=== PATIENT | male | born 1960 | race Caucasian/White ===

== ENCOUNTER 2017-04-22 06:25 | Day surgery (SDC) | payer BC ==
[2017-04-22] MEDS ORDERED: fentaNYL 100 MCG/2 ML SDV IV ONE (06:26)
[2017-04-22] MEDS ORDERED: Propofol 200 MG/20 ML SDV IV ONE (06:26)
[2017-04-22] MEDS ORDERED: Ondansetron 4 MG/2 ML SDV IV ONE (06:26)
[2017-04-22] MEDS ORDERED: Midazolam 1 MG/ML 2 ML SDV IV ONE (06:26)
[2017-04-22] MEDS ORDERED: Lactated Ringers 1,000 ML IV SCH (06:30)
[2017-04-22] MEDS ORDERED: Midazolam 1 MG/ML 2 ML SDV ONE (07:22)
[2017-04-22] MEDS ORDERED: fentaNYL 100 MCG/2 ML SDV ONE (07:22)
[2017-04-22] MEDS ORDERED: Lidocaine 2% 20 ML MDV ONE (07:23)
[2017-04-22] MEDS ORDERED: Propofol 200 MG/20 ML SDV ONE (07:23)
[2017-04-22] MEDS ORDERED: Ondansetron 4 MG/2 ML SDV ONE (07:23)
[2017-04-22] MEDS ORDERED: ceFAZolin 1 GM in Sodium Chloride 0.9% 50 ML IV ONE (07:30)
--- NOTE | 2017-04-22 07:31 | PCM.PREANE ---
Preanesthetic Assessment - Anesthesia/Transfusion/Family Hx Anesthesia History: Prior Anesthesia Without Reaction Family History of Anesthesia Reaction: No Transfusion History: No Prior Transfusion(s) Intubation History: Unknown - Review of Systems General: No Symptoms, Other (obese) Pulmonary: No Symptoms, Other (smoker smoked this morning) Cardiovascular: No Symptoms Gastrointestinal: No Symptoms Neurological: No Symptoms Other: Reports: None - Physical Assessment NPO Status Date: 04/21/17 NPO Status Time: 23:00 Pulse: 55 O2 Sat by Pulse Oximetry: 97 Respiratory Rate: 18 Vital Signs: Last Vital Signs Temp 97.3 F 04/22/17 06:37 Pulse 55 L 04/22/17 06:37 Resp 18 04/22/17 06:37 BP 173/92 H 04/22/17 06:37 Pulse Ox 97 04/22/17 06:37 Height: 1.85 m Weight: 127.006 kg ASA Class: 2 Airway Class: Mallampati = 3 Dentition: Reports: Normal Dentition Thyro-Mental Finger Breadths: 3 Mouth Opening Finger Breadths: 3 ROM/Head Extension: Full Lungs: Clear to Auscultation, Normal Respiratory Effort Cardiovascular: Irregular Rhythm - Allergies Allergies/Adverse Reactions: Allergies Allergy/AdvReac Type Severity Reaction Status Date / Time No Known Allergies Allergy Verified 04/22/17 06:39 - Blood Blood Available: No Product(s) Available: None - Anesthesia Plan Pre-Op Medication Ordered: None Beta Juanito: Metoprolol Med Last Dose Date: 04/21/17 Med Last Dose Time: 20:00 - Acknowledgements Anesthesia Type Planned: General Anesthesia Pt an Appropriate Candidate for the Planned Anesthesia: Yes Alternatives and Risks of Anesthesia Discussed w Pt/Guardian: Yes Pt/Guardian Understands and Agrees with Anesthesia Plan: Yes Additional Comments: R/B of general anesthesia discussed with patient and consent is signed PreAnesthesia Questionnaire HEENT History: Reports: Impaired Vision Cardiovascular History: Reports: Arrhythmia Respiratory History: Reports: Asthma Gastrointestinal History: Reports: None Genitourinary History: Reports: None Musculoskeletal History: Reports: Back Pain, Chronic Neurological History: Reports: None Psychiatric History: Reports: None Endocrine/Metabolic History: Reports: None Hematologic History: Reports: None Immunologic History: Reports: None Oncologic (Cancer) History: Reports: None Dermatologic History: Reports: Other (See Below) Other Dermatologic History: SWOLLEN LEFT BREAST, DRAINAGE FROM NIPPLE - Infectious Disease History Infectious Disease History: Reports: Chicken Pox - Past Surgical History Head Surgeries/Procedures: Reports: None Cardiovascular Surgical History: Reports: Cardiac Ablation Male Surgical History: Reports: None Endocrine Surgical History: Reports: None Neurological Surgical History: Reports: None Oncologic Surgical History: Reports: None Dermatological Surgical History: Reports: None - SUBSTANCE USE Smoking Status *Q: Current Every Day Smoker Tobacco Use Within Last Twelve Months: Cigarettes Second Hand Smoke Exposure: Yes Recreational Drug Use History: No - HOME MEDS Home Medications: Home Meds Albuterol [IJD: Albuterol HFA] 2 puff PO BID 04/20/17 [History] Amoxicillin/Potassium Clav [Amox Tr-K Clv 875-125 mg Tab] 1 each PO DAILY [History] Metoprolol Succinate [Toprol XL] 50 mg PO BEDTIME 04/20/17 [History] - CURRENT (IN HOUSE) MEDS Current Meds: Current Medications Lactated Ringer's (Ringers, Lactated) 1,000 mls @ 50 mls/hr IV ASD[facility]ED [facility] Last Admin: 04/22/17 06:40 Dose: 50 mls/hr
[2017-04-22] MEDS ORDERED: Sodium Chloride 0.9% 10 ML Syringe FLUSH PRN (08:31)
[2017-04-22] MEDS ORDERED: Acetaminophen/oxyCODONE 325-5 MG Tab PO PRN (08:33)
[2017-04-22] MEDS ORDERED: HYDROmorphone 1 MG/ML Syringe IVPUSH ONE (08:50)
[2017-04-22] MEDS ORDERED: HYDROmorphone 1 MG/ML Syringe ONE (08:55)
--- NOTE | 2017-04-22 09:28 | PCM.POSTAN ---
POST ANESTHESIA ASSESSMENT - MENTAL STATUS Mental Status: Alert, Oriented - VITAL SIGNS Pulse Rate: 56 SaO2: 98 Resp Rate: 18 Blood Pressure: 148/82 Temperature: 98.1 F - RESPIRATORY Respiratory Status: Respiratory Rate WNL, Airway Patent, O2 Saturation Stable - CARDIOVASCULAR CV Status: Pulse Rate WNL, Blood Pressure Stable - GASTROINTESTINAL GI Status: No Symptoms - PAIN Pain Score: 1 - POST OP HYDRATION Hydration Status: Adequate & Stable (Pain controled well with 1 mg of Dilaudid. Pleased with his anesthetic plan of care.)
[2017-04-22 11:12] VITALS: BP 137/80
--- NOTE | 2017-04-22 13:46 | OR ---
DATE: 04/22/2017 PREOPERATIVE DIAGNOSIS: Left breast mass. POSTOPERATIVE DIAGNOSIS: Left breast mass. OPERATIVE PROCEDURE: Left breast subcutaneous mastectomy. ATTENDING SURGEON: Jimeenz Martines MD COMPUTER ANALYST SUPERVISOR SURGEON: Vasyl Echeverria, PGY-III, . ESTIMATED BLOOD LOSS: Minimal. SPECIMEN: Left breast mass. INTRAOPERATIVE FINDINGS: Left breast mass, found and removed. Superficial towards the posterior portion of the nipple was removed. INDICATION FOR PROCEDURE: Alex Mina is a 56-year-old male with a family history of his mother having breast cancer, who presents with a left breast mass. He is ongoing waxing and waning for approximately a year with infection. He has been on amoxicillin which does keep it at bay, however, does not completely get it to go away. We did discuss the possible options of doing mammography and ultrasound versus excisional biopsy, in which, he wished to proceed with excisional biopsy at this time. The risks and benefits of this were discussed with the patient and wished to proceed with surgery. DETAILS OF THE PROCEDURE: The patient was brought to the operating room, placed supine on the operating room table. SCDs were placed. Antibiotics were given. He was intubated and sedated without issues, prepped and draped in the standard sterile fashion. Procedure time-out was performed. All were in agreement. A semicircular lateral left breast incision was made starting approximately in the 12 o'clock position and extending clockwise around to the 6 o'clock position, approximately 1 cm outside of the areola. This was carried down to the subcutaneous tissue. The core of tissue engrossing the mass was removed dissecting around the breast tissue until we found subcutaneous fat tissue in all regions. The mass was then removed. There were some portions of the posterior on the nipple that required further debridement, in which chronic granulation tissue was present. There was a small amount of expression of fluid from the nipple. The granulation tissue was debrided back to good dermal tissue. Hemostasis was reassured at this time. There was a small opening following debridement just to the medial portion of the nipple. A punch biopsy was then used to allow drainage of the area. The 2-0 Vicryl deep dermal stitches were placed to reapproximate the incision. A 4-0 Monocryl was placed. Mastisol and sterile dressing were also placed. The patient was brought out of anesthesia without issue and transferred to PACU in stable condition. Dr. Jimenez Martines was present and directed all portions of this procedure. [facility] /[id number] MTDD
== END 2017-04-22 10:35 | disposition home or self-care (01) ==
LOC: DL.SDS 06:25
PROVIDERS: ATTEND Surgery
DX: N60.32 Fibrosclerosis of left breast (principal); N64.89 Other specified disorders of breast; J45.909 Unspecified asthma, uncomplicated; Z98.890 Other specified postprocedural states; F17.210 Nicotine dependence, cigarettes, uncomplicated; Z79.899 Other long term (current) drug therapy
CPT/HCPCS: 19304; A9270; J0690; J1170; J2250; J2405; J2704; J3010; J7050; J7120

== ENCOUNTER 2017-10-05 08:43 | Emergency (ER) | payer BC ==
--- NOTE | 2017-10-05 08:49 | EDM.PDOC ---
ED HPI GENERAL MEDICAL PROBLEM - General Chief Complaint: Fever Stated Complaint: FLU Time Seen by Provider: 10/05/17 08:49 Source of Information: Reports: Patient, RN, RN Notes Reviewed History Limitations: Reports: No Limitations - History of Present Illness INITIAL COMMENTS - FREE TEXT/NARRATIVE: C/O onset of cough and fever yesterday with gen. body aches. Pt was exposed to a child with confirmed Influenza A this last week. Denies sore throat, rash, N/V /D/C, abd. pain, or difficulty breathing. Onset: Sudden Duration: Constant, Getting Worse Location: Reports: Generalized Quality: Reports: Ache Severity: Severe Improves with: Reports: None Worsens with: Reports: None Context: Reports: Sick Contact Associated Symptoms: Reports: No Other Symptoms Treatments BRICKMASON APPRENTICE: Reports: Breathing Treatments Generalized Pain Score (Numeric/FACES): 7 - Related Data Allergies Allergy/AdvReac Type Severity Reaction Status Date / Time No Known Allergies Allergy Verified 10/05/17 08:53 Home Meds: Home Meds Albuterol [IJD: Albuterol HFA] 2 puff PO BID 04/20/17 [History] Metoprolol Succinate [Toprol XL] 50 mg PO BEDTIME 04/20/17 [History] Past Medical History HEENT History: Reports: Impaired Vision Cardiovascular History: Reports: Arrhythmia Respiratory History: Reports: Asthma Gastrointestinal History: Reports: None Genitourinary History: Reports: None Musculoskeletal History: Reports: Back Pain, Chronic Neurological History: Reports: None Psychiatric History: Reports: None Endocrine/Metabolic History: Reports: None Hematologic History: Reports: None Immunologic History: Reports: None Oncologic (Cancer) History: Reports: None Dermatologic History: Reports: Other (See Below) Other Dermatologic History: SWOLLEN LEFT BREAST, DRAINAGE FROM NIPPLE - Infectious Disease History Infectious Disease History: Reports: Chicken Pox - Past Surgical History Head Surgeries/Procedures: Reports: None Cardiovascular Surgical History: Reports: Cardiac Ablation Male Surgical History: Reports: None Endocrine Surgical History: Reports: None Neurological Surgical History: Reports: None Oncologic Surgical History: Reports: None Dermatological Surgical History: Reports: None Social & Family History - Family History Cardiac: Reports: Other (See Below) Respiratory: Reports: Asthma Other Family History: MOTHER HAD A KIDNEY REMOVED Oncologic: Reports: Breast - Tobacco Use Smoking Status *Q: Current Every Day Smoker Years of Tobacco use: 42 Packs/Tins Daily: 1 Used Tobacco, but Quit: No Second Hand Smoke Exposure: Yes - Caffeine Use Caffeine Use: Reports: Soda - Recreational Drug Use Recreational Drug Use: No Drug Use in Last 12 Months: No - Living Situation & Occupation Living situation: Reports: with Family ED ROS GENERAL - Review of Systems Review Of Systems: ROS reveals no pertinent complaints other than HPI. ED EXAM, GENERAL - Physical Exam Exam: See Below Exam Limited By: No Limitations General Appearance: Alert, WD/WN, No Apparent Distress, Other (ill but non- toxic appearing) Eye Exam: Bilateral Eye: Normal Inspection Ears: Normal External Exam, Normal Canal, Hearing Grossly Normal, Normal TMs Nose: No Blood, Nasal Drainage (clear) Throat/Mouth: Normal Inspection, Normal Lips, Normal Teeth, Normal Gums, Normal Oropharynx, Normal Voice, No Airway Compromise Head: Atraumatic, Normocephalic Neck: Normal Inspection, Supple, Non-Tender, Full Range of Motion, Other (no nuchal rigidity). No: Lymphadenopathy (L), Lymphadenopathy (R) Respiratory/Chest: No Respiratory Distress, Lungs Clear, Normal Breath Sounds, No Accessory Muscle Use, Chest Non-Tender, Other (dry cough) Cardiovascular: Regular Rate, Rhythm, No Edema GI/Abdominal: Normal Bowel Sounds, Soft, Non-Tender, No Distention, No Abnormal Bruit (Male) Exam: Deferred Rectal (Males) Exam: Deferred Back Exam: Normal Inspection. No: CVA Tenderness (L), CVA Tenderness (R) Extremities: Normal Inspection, Non-Tender Neurological: Alert, Oriented, CN II-XII Intact, Normal Cognition, Normal Gait, No Motor/Sensory Deficits Psychiatric: Normal Affect, Normal Mood Skin Exam: Warm, Dry, Intact, Normal Color, No Rash Course - Vital Signs Last Recorded V/S: Last Vital Signs Temp 37.2 C 10/05/17 08:48 Pulse 86 10/05/17 08:48 Resp 20 10/05/17 08:48 BP 134/94 H 10/05/17 08:48 Pulse Ox 97 10/05/17 08:48 - Orders/Labs/Meds Orders: Active Orders 24 hr Category Date Time Status CULTURE STREP A CONFIRMATION [] Stat Lab 10/05/17 09:00 Results STREP SCRN A RAPID W CULT CONF [] Stat Lab 10/05/17 09:00 Results Labs: Influenza A/B and Rapid Strep: Negative Departure - Departure Time of Disposition: 10:02 Disposition: Home, Self-Care 01 Condition: Good Clinical Impression: Acute viral syndrome, Exposure to influenza - Discharge Information Instructions: Influenza, Adult, [id number], Adenovirus Forms: ED Department Discharge Additional Instructions: Rx: Tamiflu 75mg Use Acetaminophen (Tylenol) and/or Ibuprofen (Motrin/Advil) as needed for fevers or pain. Follow directions on bottle for dosing & precautions. Supplement fluid intake with extra water, juice until illness resolves. Follow up in clinic if not improving in 7 to 10 days. Return to ER if any breathing difficulty develops, or for any other medical emergency. - My Orders Last 24 Hours: My Active Orders 10/05/17 09:00 CULTURE STREP A CONFIRMATION [RM] Stat STREP SCRN A RAPID W CULT CONF [] Stat - Assessment/Plan Last 24 Hours: My Active Orders 10/05/17 09:00 CULTURE STREP A CONFIRMATION [RM] Stat STREP SCRN A RAPID W CULT CONF [] Stat
[2017-10-05 08:53] VITALS: BP 134/94
== END 2017-10-05 10:11 | disposition home or self-care (01) ==
LOC: DL.ED 08:43
DX: B34.9 Viral infection, unspecified (principal); F17.210 Nicotine dependence, cigarettes, uncomplicated; Z20.828 Contact with and (suspected) exposure to other viral communicable diseases
CPT/HCPCS: 87081; 87430; 87804; 99283

== ENCOUNTER 2020-05-26 19:46 | Emergency (ER) | payer BC ==
[2020-05-26 20:54] VITALS: BP 167/97; PULSE 65
--- NOTE | 2020-05-26 21:06 | CR ---
PROCEDURE INFORMATION: Exam: XR Left Ankle Exam date and time: 05/26/2020 8:45 PM Age: 59 years old Clinical indication: Pain; Ankle and foot; Left TECHNIQUE: Imaging protocol: XR Left ankle. Views: 3 or more views. COMPARISON: No relevant prior studies available. FINDINGS: Bones/joints: A calcaneal spur is demonstrated at the origin of the plantar fascia. There is a large calcification in the plantar fascia near the plantar spur. The mortise joint space is symmetric. There is no evidence of acute fracture. Soft tissues: No soft tissue swelling is identified. IMPRESSION: No acute abnormality.
--- NOTE | 2020-05-26 21:09 | CR ---
PROCEDURE INFORMATION: Exam: XR Left Foot Complete Exam date and time: 05/26/2020 8:54 PM Age: 59 years old Clinical indication: Pain; Ankle and foot; Left TECHNIQUE: Imaging protocol: XR Left foot. Views: 3 or more views. COMPARISON: CR Ankle Min 3V Lt 05/26/2020 8:45 PM FINDINGS: Bones/joints: There is a noninflamed plantar enthesophyte. There is a large calcification in the plantar fascia near the calcaneus. Multiple hammertoe deformities are present. There is no evidence of acute fracture. Soft tissues: Is there is a high plantar arch. No soft tissue swelling is identified. IMPRESSION: 1. High plantar arch. 2. No acute abnormality.
--- NOTE | 2020-05-26 21:18 | EDM.PDOC ---
ED HPI GENERAL MEDICAL PROBLEM - General Chief Complaint: Lower Extremity Injury/Pain Stated Complaint: LEFT FOOT SEVERE PAIN Time Seen by Provider: 05/26/20 21:14 Source of Information: Reports: Patient History Limitations: Reports: No Limitations - History of Present Illness INITIAL COMMENTS - FREE TEXT/NARRATIVE: This 59 yo male patient reports to the ED with left lateral foot and ankle pain for the past 2 days. The patient reports he stepped on a log and rolled his ankle/foot and has been experiencing increased pain since the time of the incident. Duration: Day(s): (2), Constant, Getting Worse Location: Reports: Lower Extremity, Left Quality: Reports: Ache, Dull Severity: Moderate Improves with: Reports: Rest Worsens with: Reports: Movement Context: Reports: Activity Associated Symptoms: Reports: No Other Symptoms Left Upper Anterior Feet Pain Score (Numeric/FACES): 8 - Related Data Allergies Allergy/AdvReac Type Severity Reaction Status Date / Time No Known Allergies Allergy Verified 05/26/20 20:55 Home Meds: Home Meds Fluticasone/Vilanterol [Breo Ellipta 100-25 MCG Inhalation Kit] 1 inh INH DAILY 05/26/20 [History] lisinopriL [Prinivil] 40 mg pe PO DAILY 05/26/20 [History] Past Medical History HEENT History: Reports: Impaired Vision Cardiovascular History: Reports: Arrhythmia, Hypertension Respiratory History: Reports: Asthma Gastrointestinal History: Reports: None Genitourinary History: Reports: None Musculoskeletal History: Reports: Back Pain, Chronic Neurological History: Reports: None Psychiatric History: Reports: None Endocrine/Metabolic History: Reports: None Hematologic History: Reports: None Immunologic History: Reports: None Oncologic (Cancer) History: Reports: None Dermatologic History: Reports: Other (See Below) Other Dermatologic History: SWOLLEN LEFT BREAST, DRAINAGE FROM NIPPLE - Infectious Disease History Infectious Disease History: Reports: Chicken Pox - Past Surgical History Head Surgeries/Procedures: Reports: None Cardiovascular Surgical History: Reports: Cardiac Ablation Male Surgical History: Reports: None Endocrine Surgical History: Reports: None Neurological Surgical History: Reports: None Oncologic Surgical History: Reports: None Dermatological Surgical History: Reports: None Social & Family History - Family History Cardiac: Reports: Other (See Below) Respiratory: Reports: Asthma Other Family History: MOTHER HAD A KIDNEY REMOVED Oncologic: Reports: Breast - Caffeine Use Caffeine Use: Reports: Soda - Living Situation & Occupation Living situation: Reports: with Family Review of Systems - Review of Systems Review Of Systems: Comprehensive ROS is negative, except as noted in HPI. ED EXAM, GENERAL - Physical Exam Exam: See Below Exam Limited By: No Limitations General Appearance: Alert, WD/WN, Moderate Distress Eye Exam: Bilateral Eye: EOMI, Normal Inspection, PERRL Ears: Normal External Exam, Normal Canal, Hearing Grossly Normal, Normal TMs Nose: Normal Inspection, Normal Mucosa, No Blood Throat/Mouth: Normal Inspection, Normal Lips, Normal Teeth, Normal Gums, Normal Oropharynx, Normal Voice, No Airway Compromise Head: Atraumatic, Normocephalic Neck: Normal Inspection, Supple, Non-Tender, Full Range of Motion Respiratory/Chest: No Respiratory Distress, Lungs Clear, Normal Breath Sounds, No Accessory Muscle Use, Chest Non-Tender Cardiovascular: Normal Peripheral Pulses, Regular Rate, Rhythm, No Edema, No Gallop, No JVD, No Murmur, No Rub (Male) Exam: Deferred Rectal (Males) Exam: Deferred Back Exam: Normal Inspection, Full Range of Motion, NT Extremities: Leg Pain (left lower extremity pain) Neurological: Alert, Oriented, CN II-XII Intact, Normal Cognition, Normal Gait, Normal Reflexes, No Motor/Sensory Deficits Psychiatric: Normal Affect, Normal Mood Skin Exam: Warm, Dry, Intact, Normal Color, No Rash Lymphatic: No Adenopathy Course - Vital Signs Last Recorded V/S: Last Vital Signs Temp 36.9 C 05/26/20 20:47 Pulse 65 05/26/20 20:47 Resp 18 05/26/20 20:47 BP 167/97 H 05/26/20 20:47 Pulse Ox 99 05/26/20 20:47 Departure - Departure Time of Disposition: 21:30 Disposition: Home, Self-Care 01 Condition: Fair Clinical Impression: Left ankle sprain Qualifiers: Encounter type: initial encounter Involved ligament of ankle: unspecified ligament Qualified Code(s): S93.402A - Sprain of unspecified ligament of left ankle, initial encounter - Discharge Information *PRESCRIPTION DRUG MONITORING PROGRAM REVIEWED*: Not Applicable *COPY OF PRESCRIPTION DRUG MONITORING REPORT IN PATIENT RAMA: Not Applicable Instructions: How to Use a Stirrup Ankle Brace, [id number], Ankle Sprain, [id number] Forms: ED Department Discharge Care Plan Goals: The patient was advised of the examination and x-ray results during the visit. The patient was placed in a left ankle support (air splint) during the visit. The patient was encouraged to rest, ice and elevate the extremity. If the patient has any additional symptoms or concerns, the patient should either return to the emergency department or visit his primary care facility. Sepsis Event Note (ED) - Evaluation Sepsis Screening Result: No Definite Risk - Focused Exam Vital Signs: Vital Signs Temp Pulse Resp BP Pulse Ox 05/26/20 20:47 36.9 C 65 18 167/97 H 99
== END 2020-05-26 21:35 | disposition home or self-care (01) ==
LOC: DL.ED 19:46
DX: S93.402A Sprain of unspecified ligament of left ankle, initial encounter (principal); J45.909 Unspecified asthma, uncomplicated; I10 Essential (primary) hypertension; Z79.899 Other long term (current) drug therapy; X50.1XXA Overexertion from prolonged static or awkward postures, initial encounter
CPT/HCPCS: 73610-LT; 73630-LT; 99282; 99283

== ENCOUNTER 2020-05-31 11:38 | Emergency (ER) | payer BC ==
--- NOTE | 2020-05-31 13:00 | EDM.PDOC ---
<Mitesh Oquendo - Last Filed: 05/31/20 13:02> ED HPI GENERAL MEDICAL PROBLEM - General Chief Complaint: Lower Extremity Injury/Pain Stated Complaint: Left foot injury Time Seen by Provider: 05/31/20 12:00 - Related Data Allergies Allergy/AdvReac Type Severity Reaction Status Date / Time No Known Allergies Allergy Verified 05/31/20 11:54 Home Meds: Home Meds Fluticasone/Vilanterol [Breo Ellipta 100-25 MCG Inhalation Kit] 1 inh INH DAILY 05/26/20 [History] lisinopriL [Prinivil] 40 mg PO DAILY 05/26/20 [History] Course - Radiology Interpretation Free Text/Narrative:: [facility] Final Radiology Report Call: [phone] assistance Online chat: [email or web address] Name: GAYE SORIA Age: 59Years M Date: 05/31/2020 SSN: -- : [id number] Study: CT FOOT WO CONT LT Requesting Physician: Loc Ellison Images: [id number] Addl Studies: Provided Clinical History: injury, tenderness base of 5th metatarsal Contrast: Without Contrast Medium: Contrast Amount: Contrast Method: CONFIDENTIALITY STATEMENT This report is intended only for use by the referring physician, and only in accordance with law. If you received this in error, call [phone]. Page 1 of 1 PROCEDURE INFORMATION: Exam: CT Left Lower Extremity Without Contrast, Foot Exam date and time: 05/31/2020 12:39 PM Age: 59 years old Clinical indication: Pain; Foot; Left; Additional info: Injury, tenderness base of 5th metacarpal TECHNIQUE: Imaging protocol: CT of the Left lower extremity without contrast was performed. Exam focused on the foot. Radiation optimization: All CT scans at this facility use at least one of these dose optimization techniques: automated exposure control; mA and/or kV adjustment per patient size (includes targeted exams where dose is matched to clinical indication); or iterative reconstruction. COMPARISON: CR Foot Comp Min 3V Lt 05/26/2020 8:54 PM FINDINGS: Bones/joints: Mild to moderate grade degenerative changes are present within the intertarsal articulations, Lisfranc joint and metatarsophalangeal joints. No fractures are identified. A moderate size plantar heel spur is present. Soft tissues: Soft tissue swelling is noted at the base of the 5th metatarsal. IMPRESSION: 1. Soft tissue swelling at base of the 5th metatarsal head. This could represent soft tissue injury. No fractures are identified. Thank you for allowing us to participate in the care of your patient. Dictated and Authenticated by: Compa Forrest MD 05/31/2020 1:01 PM Central Time ([place] & [place]) - Re-Assessments/Exams Free Text/Narrative Re-Assessment/Exam: 05/31/20 13:03 I saw and evaluated the patient. Discussed with resident and agree with residents findings and plan as documented in the residents note. Departure - Departure Disposition: Home, Self-Care 01 Clinical Impression: Soft tissue injury of foot - Discharge Information Instructions: Foot Sprain Forms: ED Department Discharge Additional Instructions: Follow up in outpatient clinic to discuss MRI and to address elevated blood pressure. Continue to rest and elevate the affected foot. Stay off the foot as much as possible. Use the walking boot when ambulating. Use hot/cold compresses and over the counter pain medication as needed. <Loc Ellison - Last Filed: 05/31/20 13:34> ED HPI GENERAL MEDICAL PROBLEM - General Source of Information: Reports: Patient History Limitations: Reports: No Limitations - History of Present Illness INITIAL COMMENTS - FREE TEXT/NARRATIVE: 59 y/o male who presents to the ED c/o worsening pain in the left foot after an injury that occurred 05/25/2020. He was walking outdoors when he stepped on a log with his forefoot. There was forceful dorsiflexion of the foot. Injury was initially painful but bearable. He presented here to the ED on Sunday 05/27 where plain film XR of the foot and ankle were performed which showed no fracture. Ankle sprain was suspected. He was provided a splint and advised on r est, elevation, ice/heat, and anti-inflammatory use. He has been following these instructions. Today he notes that the pain has become significantly worse. Pain is located across the top and bottom of the forefoot. Pain is worsened with weight bearing. There is tenderness when pushing on the outside of the foot. He denies any other symptoms. Patient notes history of multiple ankle sprains of the left ankle, states he has some chronic loss of range of motion in that ankle. He denies any pain within the ankle joint itself, pain is limited to the forefoot. Left Foot Pain Score (Numeric/FACES): 8 Past Medical History HEENT History: Reports: Impaired Vision Cardiovascular History: Reports: Arrhythmia, Hypertension Respiratory History: Reports: Asthma Gastrointestinal History: Reports: None Genitourinary History: Reports: None Musculoskeletal History: Reports: Back Pain, Chronic Neurological History: Reports: None Psychiatric History: Reports: None Endocrine/Metabolic History: Reports: None Hematologic History: Reports: None Immunologic History: Reports: None Oncologic (Cancer) History: Reports: None Dermatologic History: Reports: Other (See Below) Other Dermatologic History: SWOLLEN LEFT BREAST, DRAINAGE FROM NIPPLE - Infectious Disease History Infectious Disease History: Reports: None - Past Surgical History Head Surgeries/Procedures: Reports: None Cardiovascular Surgical History: Reports: Cardiac Ablation Male Surgical History: Reports: None Endocrine Surgical History: Reports: None Neurological Surgical History: Reports: None Oncologic Surgical History: Reports: None Dermatological Surgical History: Reports: None Social & Family History - Family History Family Medical History: Noncontributory Cardiac: Reports: Other (See Below) Respiratory: Reports: Asthma Other Family History: MOTHER HAD A KIDNEY REMOVED Oncologic: Reports: Breast - Caffeine Use Caffeine Use: Reports: Soda - Recreational Drug Use Recreational Drug Use: No - Living Situation & Occupation Living situation: Reports: with Family Review of Systems - Review of Systems Review Of Systems: See Below Constitutional: Reports: No Symptoms Eyes: Reports: No Symptoms Ears: Reports: No Symptoms Nose: Reports: No Symptoms Mouth/Throat: Reports: No Symptoms Respiratory: Reports: No Symptoms Cardiovascular: Reports: No Symptoms GI/Abdominal: Reports: No Symptoms Musculoskeletal: Reports: Foot Pain Neurological: Reports: No Symptoms ED EXAM, GENERAL - Physical Exam Exam: See Below Exam Limited By: No Limitations General Appearance: Alert, WD/WN, No Apparent Distress Head: Atraumatic, Normocephalic Respiratory/Chest: No Respiratory Distress, Lungs Clear, Normal Breath Sounds Cardiovascular: Normal Peripheral Pulses, Regular Rate, Rhythm, No Edema, No Murmur, No Rub Peripheral Pulses: 2+: Radial (L), Radial (R), Dorsalis Pedis (L), Dorsalis Pedis (R) GI/Abdominal: Normal Bowel Sounds, Soft, Non-Tender, No Distention Back Exam: Normal Inspection. No: Vertebral Tenderness Extremities: No Pedal Edema, Normal Capillary Refill, Limited Range of Motion, Other (Tenderness at the base of the fifth metatarsal. Limited ROM in dorsiflexion of the left ankle. No significant swelling or ecchymosis. Talar tilt and drawer tests normal at the left ankle.). No: Joint Swelling, Rosa's Sign, Increased Warmth, Redness Neurological: Alert, Oriented, No Motor/Sensory Deficits Psychiatric: Normal Affect, Normal Mood Skin Exam: Warm, Dry, Intact Course - Vital Signs Last Recorded V/S: Last Vital Signs Temp 97.4 F 05/31/20 11:55 Pulse 63 05/31/20 11:55 Resp 16 05/31/20 11:55 BP 193/103 H 05/31/20 11:55 Pulse Ox 99 05/31/20 11:55 Departure - Departure Time of Disposition: 13:27 Condition: Good - Discharge Information *PRESCRIPTION DRUG MONITORING PROGRAM REVIEWED*: Not Applicable *COPY OF PRESCRIPTION DRUG MONITORING REPORT IN PATIENT RAMA: Not Applicable Sepsis Event Note (ED) - Evaluation Sepsis Screening Result: No Definite Risk - Focused Exam Vital Signs: Vital Signs Temp Pulse Resp BP Pulse Ox 05/31/20 11:55 97.4 F 63 16 193/103 H 99 - Assessment/Plan Assessment:: Soft tissue injury of the left foot. CT reveals no acute fracture. Plan: Given significance of pain, recommend MRI eval of the left foot to assess injury severity. Patient is fitted for walking boot. Crutches offered, patient declines. Recommended he stay off the foot as much as possible. Counseled on rest, ice, elevation, and use of anti-inflammatory medication. Discussed optimal dosing of OTC analgesics.
[2020-05-31 13:29] VITALS: BP 181/98; PULSE 66
== END 2020-05-31 13:39 | disposition home or self-care (01) ==
LOC: DL.ED 11:38
DX: S99.822A Other specified injuries of left foot, initial encounter (principal); I10 Essential (primary) hypertension; J45.909 Unspecified asthma, uncomplicated; Z79.899 Other long term (current) drug therapy; W22.8XXA Striking against or struck by other objects, initial encounter; Y93.01 Activity, walking, marching and hiking
CPT/HCPCS: 73700-LT; 99282; 99283-25

== ENCOUNTER 2022-01-17 17:23 | Emergency (ER) | payer BC, OTHER ==
[2022-01-17 20:00] VITALS: BP 132/92; PULSE 74
== END 2022-01-17 20:35 | disposition home or self-care (01) ==
LOC: DL.ED 17:23
DX: S92.354A Nondisplaced fracture of fifth metatarsal bone, right foot, initial encounter for closed fracture (principal); I10 Essential (primary) hypertension; F17.210 Nicotine dependence, cigarettes, uncomplicated; Z79.899 Other long term (current) drug therapy; X50.0XXA Overexertion from strenuous movement or load, initial encounter; Y93.67 Activity, basketball
CPT/HCPCS: 73620-RT; 99283; 99283-25

== ENCOUNTER 2023-05-15 10:01 | Emergency (ER) | payer BC, MEDICAID ==
[2023-05-15 10:25] VITALS: BP 120/89; PULSE 97
== END 2023-05-15 10:43 | disposition home or self-care (01) ==
LOC: DL.ED 10:01
DX: R60.0 Localized edema (principal); K59.03 Drug induced constipation; I10 Essential (primary) hypertension; J45.909 Unspecified asthma, uncomplicated; Z96.642 Presence of left artificial hip joint; Z79.899 Other long term (current) drug therapy
CPT/HCPCS: 99283

== ENCOUNTER 2024-08-28 19:00 | Emergency (ER) | payer BC, OTHER ==
[2024-08-28] MEDS: Albuterol/Ipratropium 3.0-0.5 MG/3 ML Neb Soln NEB ONE (19:49)
[2024-08-28] MEDS: methylPREDNISolone Sodium Succinate 125 MG/2 ML SDV IVPUSH ONE (19:49)
[2024-08-28 20:08] LABS: BASOPHILS PERCENT AUTO 0.5 % (0.0-1.0); EOSINOPHILS PERCENT AUTO 5.4 % (1.0-3.0); HEMATOCRIT 47.8 % (40.0-54.0); HEMOGLOBIN 16.3 g/dL (14.0-18.0); LYMPHOCYTES PERCENT AUTO 25.9 % (20.5-50.1); MEAN CORPUSCULAR HEMOGLOBIN 33.2 pg (27.0-34.0); MEAN CORPUSCULAR HGB CONC 34.1 g/dL (33.0-35.0); MEAN CORPUSCULAR VOLUME 97.4 fL (80-100); MONOCYTES PERCENT AUTO 5.8 % (2-8); NEUTROPHILS PERCENT AUTO 62.4 % (42.2-75.2); PLATELET COUNT,PLT 245 10^3/uL (150-450); RED BLOOD CELL COUNT 4.91 10^6/uL (4.6-6.2)
[2024-08-28 20:28] LABS: ALBUMIN 3.2 g/dL (3.4-5.0); ANION GAP 12.7 mEq/L (7-13); BILIRUBIN TOTAL 0.6 mg/dL (0.2-1.0); BUN/CREATININE RATIO 17.1 (No establ ref range); CALCIUM 8.3 mg/dL (8.5-10.1); CREATININE 1.23 mg/dL (0.70-1.30); EST CRCL DRUG DOSING (CG) 67.33 mL/min; MAGNESIUM 1.7 mg/dL (1.8-2.4); POTASSIUM,K 3.7 mmol/L (3.5-5.1); PROTEIN TOTAL,TP 6.7 g/dL (6.4-8.2)
[2024-08-28 20:34] LABS: A/G RATIO 0.91
[2024-08-28] MEDS: Take Home: predniSONE 20 MG, 4 Tab Pack PO ONE (20:40)
[2024-08-28 21:12] VITALS: BP 109/84; PULSE 71
[2024-08-28] MEDS: Magnesium Oxide 400 MG Tab ONE (21:18)
[2024-08-28] MEDS: Magnesium Oxide 400 MG Tab PO ONE (21:20)
== END 2024-08-28 21:31 | disposition home or self-care (01) ==
LOC: DL.ED 19:00
DX: J45.901 Unspecified asthma with (acute) exacerbation (principal); J06.9 Acute upper respiratory infection, unspecified; B97.89 Other viral agents as the cause of diseases classified elsewhere; F17.210 Nicotine dependence, cigarettes, uncomplicated
CPT/HCPCS: 71046; 80053; 83735; 85025; 87428; 96374; 99284; A9270; J2919; J7620-GY